=== PATIENT | male | born 1945 | race Caucasian/White ===

== ENCOUNTER 2016-12-26 22:47 | Emergency (ER) | payer OTHER ==
[~2016-12-26] VITALS: Ht 177.8 cm; Wt 120.0 kg
[2016-12-26 23:18] LABS: MCH 26.5 PG (29.0-34.0); MCV 80.4 FL (86-99); MEAN PLAT.VOLUME 9.7 uM^3 (9.0-12.4); PLATELET COUNT 324 K/uL (156-360); RBC DIS.WIDTH-CV 14.1 % (11.8-14.6); RBC DIS.WIDTH-SD 41.1 % (39-53); RED BLOOD COUNT 5.35 M/uL (4.00-5.50)
[2016-12-26 23:26] LABS: CHLORIDE 103 mEq/L (99-109); POTASSIUM 3.9 mEq/L (3.7-5.4); SODIUM 138 mEq/L (136-147)
[2016-12-26 23:28] LABS: GLUCOSE 136 mg/dL (70-99)
[2016-12-26 23:29] LABS: ANION GAP 12 MEQ/L (2-14)
[2016-12-26 23:30] LABS: TOTAL BILIRUBIN 0.6 mg/dL (0.0-1.0)
[2016-12-26 23:31] LABS: ALKALINE PHOSPHATASE 56 IU/L (3-129)
[2016-12-26 23:33] LABS: UREA NITROGEN (BUN) 25 mg/dL (9-23)
[2016-12-26 23:35] LABS: LIPASE 5 U/L (1.0-51.0)
[2016-12-26 23:36] LABS: GFR ESTIMATE (CALCULATED) > 59 mL/min/
[2016-12-26 23:46] LABS: INFLUENZA A VIRAL ANTIGEN NEGATIVE; INFLUENZA B VIRAL ANTIGEN NEGATIVE
[2016-12-27] MEDS ORDERED: ZOFRAN8 MG PO (02:11)
[2016-12-27 02:25] LABS: ADD MIUA? NO; BILIRUBIN NEGATIVE; BLOOD NEGATIVE; COLOR YELLOW ((YELLOW)); GLUCOSE (STRIP) NEGATIVE; KETONES 15; LEUKOCYTES NEGATIVE; NITRITE NEGATIVE; PH, URINE 6.5 (5-8); PROTEIN (STRIP) NEGATIVE; UCUL ADDED? NO; UROBILINOGEN 0.2 MG/DL (0.2-1.0)
[2016-12-27 02:37] LABS: SPECIFIC GRAVITY 1.098 (1.000-1.030)
[2016-12-27 03:24] VITALS: BP 163/96
== END 2016-12-27 03:25 | disposition home or self-care (01) ==
LOC: EME 22:47
DX: R10.30 Lower abdominal pain, unspecified (principal); R11.2 Nausea with vomiting, unspecified; R19.7 Diarrhea, unspecified; E11.9 Type 2 diabetes mellitus without complications; I10 Essential (primary) hypertension; M06.9 Rheumatoid arthritis, unspecified
CPT/HCPCS: 74177; 80053; 81003; 83690; 85027; 87502; 99281; 99285; J2270; J2405; J7030